=== PATIENT | male | born 1955 | race Caucasian/White ===

== ENCOUNTER 2019-10-13 19:46 | Observation (INO) | payer OTHER, MEDICAID ==
[~2019-10-13] VITALS: Ht 172.7 cm; Wt 77.1 kg
--- NOTE | ~2019-10-13 | EC ---
PATIENT:JERARDO ZAZUETA DATE OF SERVICE: 10/13/19 SEX: M MEDICAL RECORD: [id number] DATE OF : [birth year] LOCATION:D. D.212 AGE OF PATIENT: 64 ADMISSION DATE: 10/13/19 REFERRING PHYSICIAN: INTERPRETING PHYSICIAN: MARLIN HARVEY MD ECHOCARDIOGRAM REPORT ECHO CHARGES 4 ECHO COMPLETE Date: 10/15/19 CLINICAL DIAGNOSIS: UNSTABLE ANGINA HX CAD/PACER ECHOCARDIOGRAPHIC MEASUREMENTS (adult normal given) AC root (d.<3.7cm) 3.7 cm LV Septum d (<1.2 cm> 1.6 cm Valve Excursion 2.1 cm LV Septum (systole) 1.8 cm Left Atria (s.<4.0cm> 4.5 cm LVPW d(<1.2cm) 1.7 cm RV (d.<2.3cm) 5.4 cm LVPW (sytole) 1.9 cm LV diastole(<5.6CM) 5.5 cm MV E-F(>70mm/sec) cm LV systole 3.4 cm LVOT Diameter 2.5 cm MV exc.(>10mm) 1.8 cm Est.ejection fraction (50-75%) % DOPPLER: LVIT cm/sec A 70.0 cm/sec E 88.0 cm/sec LA cm/sec RVSP 37 mmHg LVOT 145 cm/sec AOP1/2T m/s Asc. Ao 140 cm/sec RVOT 80 cm/sec RA cm/sec PA 140 cm/sec AV Gradient Peak 7.80 mmHg AV Mean 5.30 mmHg AV Area 4.8 cm MV Gradient Peak 5.28 mmHg MV Mean 1.54 mmHg MV Area cm COMMENTS: Coffee Break Attendant: Franklin THOMPSON Breakfast Server: 1 Dr. Harvey TAPE# PACS Pericardial Effusion N DATE OF SERVICE: 10/15/2019 ECHOCARDIOGRAM FINDINGS: 1. Left ventricular chamber size is within normal limits. Left ventricular systolic function is normal. Overall ejection fraction estimated at 60%. 2. Left atrium is enlarged at 4.5 cm. Right atrium and right ventricular chamber sizes are as well mildly dilated. 3. Valvular structures have normal structure and motion. ECHOCARDIOGRAM REPORT [id number] JERARDO ZAZUETA 4. Doppler interrogation reveals mild aortic insufficiency, mild mitral regurgitation, mild tricuspid regurgitation, no other valvular insufficiency or stenosis. 5. Pulmonary systolic pressure is estimated at 37 mmHg. 6. No evidence of pericardial effusion or left ventricular thrombus. TRANSINT:[id number] Voice Confirmation ID: [id number] DOCUMENT ID: [id number] MARLIN HARVEY MD CC: [id number] DICTATION DATE: 10/15/191251 SYSTEMS PROTECTION TECHNICIAN: 10/15/191950 ADM IN [facility] [address] [place] [address]
--- NOTE | ~2019-10-13 | HEMODYNAMI ---
PATIENT:JERARDO ZAZUETA MEDICAL RECORD: [id number] : 51 LOCATION:Emy.MS Booth2230 ADMISSION DATE: 10/13/19 Generatedon:10/15/201917:15 Patient name: JERARDO ZAZUETA Patient #: [id number] SSN: [id number] : 1955 Date of study: 10/15/2019 Page: Of Hemodynamic Procedure Report Patient Data Patient Demographics Procedure consent was obtained First Name: JERARDO Gender: Male Last Name: CARLITA : 1955 Patient #: [id number] Age: 64 year(s) Race: SSN: [id number] Additional ID: [id number] Contact details Address: [address] [place] [address] State: [place] City: [facility] [place], [place] Zip code: [address] Past Medical History Allergies: No known allergies Admission Admission Data Admission Date: 10/13/2019 Admission Time: 21:32 Arrival Date: 10/15/2019 Arrival Time: 0:00 Admit Source: Other Insurance Payor: Private Room #: D.2230 health insurance [facility] #: [id number] Height (in.): 68 BSA: 1.91 (m2) Height (cm.): 172.72 BMI: 25.9 (kg/m2) Weight (lbs.): 170.35 Weight (kg.): 77.27 Lab Results Lab Result Date: 10/15/2019 Lab Result Time: 0:00 Biochemistry Name Units Result Min Max BUN mg/dl 17 --(---*)-- 7 18 CK-MB ng/ml 0.7 --(*---)-- 0 3.6 Creatinine mg/dl 1.2 --(---*)-- 0.6 1.3 eGFR ml/min 64.70379 *-(----)-- 90 120 NONAFRICAN Troponin l ng/ml 0.017 --(-*--)-- 0 0.06 CBC Name Units Result Min Max Hematocrit % 37.3 *-(----)-- 42 54 Hemoglobin g/dl 12.1 *-(----)-- 13.5 17.5 Procedure Procedure Types Cath Procedure Diagnostic Procedure [facility] w/Coronaries FFR/IVUS FFR Initial Sedation Charges Moderate Sedation up to 15 minutes PCI Procedure Coronary Stent Coronary Stent Initial Hemochron ACT Test Procedure Description Procedure Date Procedure Date: 10/15/2019 Procedure Start Time: 16:59 Procedure End Time: 17:13 Procedure Staff Name Function Lazaro Harvey MD Performing Physician Lila Suarez RT Monitor Sana Hensley RT Scrub Gee Moreno RN Nurse Procedure Data Cath Procedure Fluoroscopy Diagnostic fluoroscopy Total fluoroscopy Time: 2 time: 2 min min Diagnostic fluoroscopy Total fluoroscopy dose: 434 dose: 434 mGy mGy Contrast Material Contrast Material Type Amount (ml) Isovue 370 71 Entry Location Entry Primary Successful Side Size Upsize Upsize Entry Closure Succes sful Closure Location (Fr) 1 (Fr) 2 (Fr) Remarks Device Remarks Femoral Right 5 Fr 6 Fr Exoseal artery Short Estimated blood loss: 10 ml Diagnostic catheters Device Type Used For End Catheter Placement MULTIPACK Pigtail 5 Fr Procedure catheter MULTIPACK JL 4.0 5Fr Procedure catheter MULTIPACK 3DRC 5Fr Procedure catheter Procedure Complications No complications Procedure Medications Medication Administration Route Dosage 0.9% NaCl I.V. 100 ml/hr Oxygen etCO2 Nasal cannula 2 l/min Heparin Flush Bag added to field 2 bags (1000units/500ml NS) Lidocaine 2% added to field 20 Versed I.V. 1 mg Fentanyl I.V. 50 mcg Versed I.V. 1 mg Fentanyl I.V. 50 mcg Heparin Bolus I.V. 4000 units Integrilin (Bolus I.V. 6.8 ml 2mg/ml) Plavix P.O. 600 mg Hemodynamics Rest BSA: 1.91 (m2) HGB: 12.1 (g/dl) O2 Consumption: Estimated: 235.6 (ml/min) O2 Con sumption indexed: Estimated:123.35 (ml/min/m) Heart Rate: 88 (bpm) Snapshots Pre Cath Intra NCS Post Cath Vital Signs Time Heart Resp SPO2 etCO2 NIBP Rhythm Pain Sedation Rate (ipm) (%) (mmHg) (mmHg) Status Level (bpm) 16:50:55 87 21 96 0 114/77(91) NSR 0 (11) 10(A) , No pain 16:55:01 90 18 98 0 112/74(88) NSR 0 (11) 10(A) , No pain 16:59:06 84 17 99 26.2 102/71(84) NSR 0 (11) 10(A) , No pain 17:03:08 90 13 94 30.7 105/71(85) NSR 0 (11) 10(A) , No pain 17:07:14 100 21 94 3 112/68(88) NSR 0 (11) 10(A) , No pain 17:11:18 96 16 96 18.7 105/80(90) NSR 0 (11) 10(A) , No pain Medications Time Medication Route Dose Verified Delivered Reason Notes Effectiveness by by 16:57:20 0.9% NaCl I.V. 100 Gee Gee Per physician ml/hr Tiffanie Moreno RN RN 16:57:35 Oxygen etCO2 2 Gee Gee for low 02 sats Nasal l/min Tiffanie Moreno cannula RN RN 16:57:49 Heparin Flush added 2 Gee Gee used for Bag to bags Lorjessica Moreno procedure (1000units/500ml field RN RN NS) 16:58:12 Lidocaine 2% added 20ml Gee Gee for local to vial Lorjessica Moreno anesthetic [facility] RN RN 16:58:21 Versed I.V. 1 mg Gee Gee for sedation Tiffanie Moreno RN RN 16:58:29 Fentanyl I.V. 50 Gee Gee for sedation mcg Tiffanie Moreno RN RN 16:59:07 Versed I.V. 1 mg Gee Gee for sedation Tiffanie Moreno RN RN 16:59:11 Fentanyl I.V. 50 Gee Gee for sedation mcg Tiffanie Moreno RN RN 17:06:45 Heparin Bolus I.V. 4000 Gee Gee for verif ied units Tiffanie Moreno anticoagulation with RN HARRY balderas 17:09:02 Integrilin I.V. 6.8 Gee Gee for waste d (Bolus 2mg/ml) ml Tiffanie Moreno antiplatelet 3.2 ml RN RN therapy of vial 17:11:25 Plavix P.O. 600 Gee Gee for mg Lorjessica Moreno antiplatelet RN RN therapy Procedure Log Time Note 16::42 Informed consent obtained and on chart 16:25:04 Procedure Status Urgent Heart Cath (IP). 16:25:06 Gee Moreno RN sent for patient. Start room use. 16:25:07 Time tracking: Regular hours (M-F 7:00 - 5:00) 16:25:10 Plan of Care:Hemodynamics will remain stable., Cardiac rhythm will remain stable., Comfort level will be maintained., Respiratory function will remain adequate., Patient/ family verbilizes understanding of procedure., Procedure tolerated without complication., Recovers from procedure without complications.. 16:37:38 H&P Date Dictated: 10/15/2019 Within 30 days and on chart.. 16:38:32 Lab Result : BUN 17 mg/dl 16:38:32 Lab Result : Creatinine 1.2 mg/dl 16:38:32 Lab Result : Troponin l 0.017 ng/ml 16:38:32 Lab Result : CK-MB 0.7 ng/ml 16:38:32 Lab Result : eGFR NONAFRICAN 64.25875 ml/min 16:38:32 Lab Result : Hemoglobin 12.1 g/dl 16:38:32 Lab Result : Hematocrit 37.3 % 16:38:36 Lab results completed and on chart. 16:38:41 Stress Test: no; N/A ? 16:38:45 Risk of Mortality: 0.8 16:38:47 Risk of blood transfusion: 1.2 16:38:51 Risk of VANCE: 0.7 16:38:53 Alarms reviewed by R. N. 16:38:54 Sharps counted by scrub and verified by R.N. 16:39:26 Arrival Date: 10/15/2019 12:00:00 AM 16:39:27 Admit Source: Other 16:39:30 Insurance Payor : Private health insurance 16:39:43 Patient Height : 68 inches 16:39:47 Patient Weight : 170.35 lbs 16:39:59 Diagnostic Cath Status : Urgent 16:43:30 Patient received from Med II to CCL 1 Alert and oriented. Tansferred to table in Supine position. 16:43:31 Warm blankets applied, and imelda hugger turned on for patient comfort. 16:43:32 Correct patient and procedure confirmed by team. 16:43:34 ECG and BP/O2 sat monitors applied to patient. 16:45:06 Pre-procedure instructions explained to patient. 16:45:07 Pre-op teaching completed and patient verbalized understanding. 16:45:10 Family unavailable. 16:45:15 Patient allergic to No known allergies 16:45:18 Is the patient allergic to Iodine/contrast media? No. 16:45:19 Was the patient premedicated? Yes 16:49:06 Is patient on blood thinner?No 16:49:10 ACC The patient was administered the following blood thiners within the last 24 hours: Unknown 16:49:13 Patient diabetic? Yes. 16:49:14 If diabetic: On Metformin? Yes 16:49:32 If on Metformin: Last Dose? 10/13/2019 16:49:35 ----Pre-sedation anethsthesia assessment.---- 16:49:43 Previous problem with sedation/anesthesia? No ? 16:49:44 Snore? Yes 16:49:46 Sleep apnea? No 16:49:47 Deviated septum? No 16:49:48 Opens mouth fully? Yes 16:49:50 Sticks out tongue? Yes 16:49:52 Airway obstruction? No ? 16:49:55 Dentures? No ? 16:49:59 Vital chart was started 16:50:00 Full Disclosure recording started 16:50:07 Pre procedure: right dorsailis pedis pulse 2+ Normal; easily identifiable; not easily obliterated 16:50:11 Patient pain scale 0/10 ?. 16:50:23 IV patent on arrival in right wrist with 0.9% NaCl at O. 16:50:27 Right groin area was prepped with chlora-prep and draped in sterile fashion 16:50:35 Baseline sample Acquired. 16:50:39 Rhythm: sinus rhythm 16:50:43 Use device set Femoral Dx 16:50:44 ACIST Syringe (63901) opened to sterile field. 16:50:45 Bag Decanter (2001S) opened to sterile field. 16:50:50 Tegaderm 4 x 4 (1626W) opened to sterile field. 16:50:52 SHEATH 5FR [place] (YYP554) opened to sterile field. 16:50:53 EMERALD Guide Wire (456-514) opened to sterile field. 16:50:55 ACIST Hand Control (55544) opened to sterile field. 16:50:56 ACIST Manifold (56180) opened to sterile field. 16:50:58 Medline Cath Pack ([id number]) opened to sterile field. 16:51:02 DIAGNOSTIC Multipack 5Fr catheter set (GT5651) opened to sterile field. 16:57:20 0.9% NaCl 100 ml/hr I.V. was administered by Gee Moreno RN; Per physician; Verbal order read back and verified. 16:57:35 Oxygen 2 l/min etCO2 Nasal cannula was administered by Gee Moreno RN; for low 02 sats; Verbal order read back and verified. 16:57:46 --------ALL STOP TIME OUT------ 16:57:47 Final Timeout: patient, procedure, and site verified with staff and physician. All members of the team are in agreement. 16:57:49 Heparin Flush Bag (1000units/500ml NS) 2 bags added to field was administered by Gee Moreno RN; used for procedure; Verbal order read back and verified. 16:57:49 Right groin site verified by team. 16:57:53 Fire Safety Assessment: A--An alcohol-based skin anteseptic being used preoperatively., C--Open oxygen or nitrous oxide is being used., D--An ESU, laser, or fiber-optic light is being used. 16:58:00 Physical assessment completed. ASA score P 2 - A patient with mild systemic disease as per Lazaro Harvey MD. 16:58:03 2) 60-89 Mildly reduced kidney function, and other findings (as for stage 1) point to kidney disease. 16:58:07 Maximum allowable contrast dose (3.7 X eGFR X 0.75)177 ml. 16:58:11 Sedation plan: IV Moderate Sedation Medication:Versed, Fentanyl 16:58:12 Lidocaine 2% 20ml vial added to field was administered by Gee Moreno RN; for local anesthetic; Verbal order read back and verified. 16:58:15 Procedure started. 16:58:21 Versed 1 mg I.V. was administered by Gee Moreno RN; for sedation; Verbal order read back and verified. 16:58:29 Fentanyl 50 mcg I.V. was administered by Gee Moreno RN; for sedation; Verbal order read back and verified. 16:59:07 Versed 1 mg I.V. was administered by Gee Moreno RN; for sedation; Verbal order read back and verified. 16:59:11 Fentanyl 50 mcg I.V. was administered by Gee Moreno RN; for sedation; Verbal order read back and verified. 16:59:14 Local anesthetic to right femoral artery with Lidocaine 2% by Lazaro Harvey MD.INITIAL ACCESS ONLY 16:59:25 A 5 Fr sheath was inserted into the Right Femoral artery 16:59:38 A MULTIPACK Pigtail 5 Fr catheter was advanced over the wire and used for Procedure. 17:00:20 LV gram done using FELDMAN 17:00:34 Injector settings: Ml/sec: 10, Volume: 20, 17:00:48 EF : 50 % 17:00:55 Catheter removed. 17:01:00 A MULTIPACK JL 4.0 5Fr catheter was advanced over the wire and used for Procedure. 17:01:05 LCA angiography performed. 17:02:19 Catheter removed. 17:02:26 A MULTIPACK 3DRC 5Fr catheter was advanced over the wire and used for Procedure. 17:02:36 RCA angiography performed. 17:02:48 ACCDominant side:Left 17:02:51 Catheter removed. 17:02:53 Proceeding to intervention. 17:03:05 Sheath upsized to a 6 Fr Short. 17:03:13 SHEATH 6FR [place] (KEU750) opened to sterile field. 17:03:17 INFLATOR Merit BasixCompak (FR9157) opened to sterile field. 17:03:18 Westbrook Verrata Plus pressure wire (46313J) opened to sterile field. 17:03:19 GUIDE 6FR XBLAD 4.0 catheter ([id number]) opened to sterile field. 17:03:32 6 Fr XBLAD 4 guide catheter was inserted over the wire 17:04:15 FFR/IFR wire advanced. 17:05:17 Wire advanced across lesion. 17:06:04 mLAD lesion measured at .81 with IFR 17:06:45 Heparin Bolus 4000 units I.V. was administered by Gee Moreno RN; for anticoagulation; verified with dr harvey Verbal order read back and verified. 17:06:49 Pre PCI Site: [place] mLAD has 70% stenosis. 17:07:33 Place stent Inflation Number: 1 A COBRA RX 3.5 X 12 Stent was prepped and advanced across the Mid LAD . The stent was deployed at 17 AJIT for 0:00 (min:sec) . 17:08:22 EXOSEAL 6Fr (EX600) opened to sterile field. 17:08:34 Wire removed. 17:08:35 Guide catheter removed. 17:08:52 Sheath removed intact; hemostasis achieved with Exoseal to the Right Femoral artery. 17:08:55 Procedure ended.(Physican Out) 17:09:02 Integrilin (Bolus 2mg/ml) 6.8 ml I.V. was administered by Gee Moreno RN; for antiplatelet therapy; wasted 3.2 ml of vial Verbal order read back and verified. 17:09:24 Fluoroscopy time 02.00 minutes. 17:09:29 Fluoroscopy dose: 434 mGy 17:09:29 Flurop Dose total: 434 17:09:36 Dose Area Product 01228 mGy/cm. 17:09:44 Contrast amount:Isovue 370 71ml. 17:09:49 Maximum allowable dose exceeded? No. 17:09:51 Sharps counted by scrub and verified by R.N. 17:10:02 Post-op/insertion site Right Femoral artery dressed using a 4 x 4 and Tegaderm. 17:10:08 Post right femoral artery:stable, soft, clean and dry 17:10:14 Post Procedure Pulses reassessed and unchanged 17:10:17 Post procedure: right dorsailis pedis pulse 2+ Normal; easily identifiable; not easily obliterated. 17:10:23 Post-procedure physical assessment completed. ASA score P 2 - A patient with mild systemic disease as per Lazaro Harvey MD. 17:10:26 Post procedure rhythm: unchanged. 17:10:29 Estimated blood loss: 10 ml 17:10:31 Post procedure instruction explained to patient.Patient verbalizes understanding. 17:10:32 Patient needs reinforcement of post procedure teaching. 17:11:24 Procedure type changed to Cath procedure, Diagnostic procedure, LHC, LHC w/Coronaries, FFR/IVUS, FFR Initial, Sedation Charges, Moderate Sedation up to 15 minutes, PCI procedure, Coronary Stent, Coronary Stent Initial, Hemochron ACT Test 17:11:25 Plavix 600 mg P.O. was administered by Gee Moreno RN; for antiplatelet therapy; Verbal order read back and verified. 17:12:37 ACT drawn and resulted at 166 seconds. (normal therapeutic range 180-240 seconds). 17:12:51 Procedure Complication : No complications 17:12:53 Vital chart was stopped 17:12:57 [facility] Findings: MVD- PCI performed (see procedure note) 17:12:59 Operative report dictated upon procedure completion. 17:12:59 See physician's report for complete and final results. 17:13:02 Report given to [facility]. 17:13:05 Patient transfered to [facility] with Bed. 17:13:08 Procedure ended. 17:13:08 Full Disclosure recording stopped 17:13:17 ACC-PCI Only Patient was given prescriptions, or instructed by Lazaro Harvey MD to start/continue the following medications upon discharge: Plavix 17:13:20 End room use (Document Last) 17:14:02 End room use (Document Last) Intervention Summary Intervention Notes Time ActionType Lesion and Equipment Action# Pressure Duration Attributes Used 17:07:33 Place stent Mid LAD COBRA RX 1 17 00:00 3.5 X 12 Stent Device Usage Item Name Manufacture Quantity Catalog Hospital Part Current Minimal Lot# / Number Charge Number Stock Stock Serial# Code ACIST Syringe Acist 1 03603 934966 130923 329664 20 (10414) Medical Systems Inc Bag Decanter Microtek 1 2001S 796249 16196 512659 5 (2001S) Medical Inc. Tegaderm 4 x 4 3M 1 1626W 997374 470920 060823 5 (1626W) SHEATH 5FR Terumo 1 VSY197 321685 652588 004556 5 [place] (ZFT904) EMERALD Guide Cardinal 1 502-455 586044 908461 885188 5 Wire (502-455) Health ACIST Hand Acist 1 58084 718056 749921 198634 5 Control Medical (25526) Systems Inc ACIST Manifold Acist 1 11666 105852 031668 249019 5 (09610) Medical Systems Inc Medline Cath Medline 1 [id number] 148418 40866 927039 5 Pack ([id number]) DIAGNOSTIC Cardinal 1 NX4205 603775 27849 656519 30 Multipack 5Fr Health catheter set (LX4542) MULTIPACK Cardinal 1 271537 5 Pigtail 5 Fr Health catheter MULTIPACK JL Cardinal 1 559771 5 4.0 5Fr Health catheter MULTIPACK 3DRC Cardinal 1 181992 5 5Fr catheter Health SHEATH 6FR Terumo 1 PMX751 303920 209448 053942 40 [place] (ZMG824) INFLATOR Merit Merit 1 XF5666 776471 208665 979002 [address] [facility] (WB8850) Westbrook Westbrook 1 97143W 544877 281109929 729458 5 Verrata Plus pressure wire (98677G) GUIDE 6FR Cardinal 1 [id number] 368404 258287 333473 3 XBLAD 4.0 Health catheter ([id number]) COBRA RX 3.5 X Celonova 1 [id number] 565288 168671065 892328 3 [id number] 12 stent Biosciences (129-40-76572) EXOSEAL 6Fr Cardinal 1 EX600 574521 741292 858618 10 (EX600) Health Signature Audit Norris Stage Time Signature Unsigned Intra-Procedure 10/15/2019 Sana Hensley 5:14:02 PM RT(R) Intra-Procedure 10/15/2019 Gee 5:15:14 PM Tiffanie MCDONALD Intra-Procedure 10/15/2019 Lazaro Harvey 5:15:50 PM [facility] [address] [place] [address]
--- NOTE | ~2019-10-13 | CN ---
PATIENT NAME:JERARDO THOMPSON MEDICAL RECORD: [id number] : 51 LOCATION:D.MS Booth2230 ADMIT DATE: 10/13/19 ACCOUNT: [id number] CONSULTING PHYSICIAN: MARLIN ASHBY MD REFERRING PHYSICIAN: NIECY MOREL MD DATE OF CONSULTATION: 10/15/2019 CARDIOLOGY CONSULTATION DIAGNOSES: 1. Unstable angina. 2. Coronary artery disease. 3. Previous multivessel PTCA and stent. 4. Smoking. 5. Chronic obstructive pulmonary disease. HISTORY OF PRESENT ILLNESS: Mr. Thompson has had 1 week of increasing episodes of chest pain and chest discomfort compatible with angina, very typical angina, just like that of his previous angina. Burning, dull, aching sensation across the anterior chest radiating to his neck. Associated also with profound in increased shortness of breath over the past week. Does have a history of COPD, smoking. He is being treated for this. He continues to have episodes of chest discomfort despite this. PHYSICAL EXAMINATION: CONSTITUTIONAL/GENERAL APPEARANCE: Well nourished, well developed, appears stated age. EYES: Lids and conjunctivae noninjected. No discharge. No pallor. ENT: Lips within normal limit. No cyanosis. No pallor. NECK: Carotid arteries, bilateral normal upstroke. No bruits. No thrills. No jugular venous pressure or distention. CERVICAL LYMPH NODES: Nontender. Nonenlarged. THYROID: Not enlarged. No nodules. CARDIOVASCULAR: Precordial exam, nondisplaced. No heaves or pericardial thrills. Rate and rhythm, regular. Heart sounds, normal S1, normal S2. No S3, no gallop, no rub. Systolic murmur, not heard. Diastolic murmur, not heard. RESPIRATORY: Respiratory effort, unlabored. Normal curvature. No thoracic deformity. No chest wall tenderness. Percussion, resonant. Auscultation, clear. No wheezes, no rales, no rhonchi. ABDOMEN: Soft, nondistended, nontender. No abdominal pain, no vomiting and normal appetite. MUSCULOSKELETAL: No joint tenderness, normal gait, normal tone. SKIN: Warm and dry. OVERALL IMPRESSION: Unstable angina class IV, just like that of his previous angina in a patient with a past history of multivessel PTCA and stent, chronic obstructive pulmonary disease, and continued smoking. Most likely, he has recurrent hemodynamically significant coronary artery disease. We will proceed with coronary angiography. Further care depends on findings of the angiography. TRANSINT:[id number] Voice Confirmation ID: [id number] DOCUMENT ID: [id number] CONSULT REPORT [id number] JERARDO THOMPSON JEFFREY MD CC: [id number] DICTATION DATE: 10/15/19824 MILL WORK: 10/15/19 112 ADM IN [place] [address] [place] [address]
--- NOTE | ~2019-10-13 | OP ---
PATIENT NAME: JERARDO ZAZUETA MEDICAL RECORD: [id number] :51 LOCATION:D.M2 D.2121 ADMISSION DATE:10/13/19 SURGEON: MARLIN ASHBY MD DATE OF OPERATION: 10/15/2019 PROCEDURES: 1. PTCA stent LAD. 2. IFR. 3. Left heart catheterization. 4. Selective coronary angiography. 5. Left ventriculogram. 6. Left heart catheterization. INDICATION: Angina and coronary artery disease. PROCEDURE IN DETAIL: After informed consent was obtained and after a detailed description of risks, benefits as well as alternative therapies, the patient elected to proceed with angiogram and angioplasty. The right femoral area was prepped and draped in normal sterile fashion. Right femoral artery was cannulated via modified Seldinger technique with placement of 6-Luxembourgish sheath. All catheters exchanged through this sheath. FINDINGS: The left ventriculogram was performed in standard 30-degree FELDMAN view, reveals good cardiac wall motion, ejection fraction 50%. SELECTIVE CORONARY ANGIOGRAPHY: 1. Left main is with no significant angiographic disease. 2. Left anterior descending has a previously placed stent in the mid vessel. This was 70% in-stent restenosis and IFR was abnormal at 0.81. 3. Left circumflex has moderate irregularities, but no flow-limiting stenosis. 4. Right coronary has moderate irregularities, but no flow-limiting stenosis. PTCA STENT OF THE LAD: The stent used was a 3.5 x 15 mm Cobra. Result was 0% residual stenosis. OVERALL IMPRESSION: Successful percutaneous transluminal angioplasty stent of the left anterior descending going from 70% initial stenosis with abnormal IFR to 0% residual. TRANSINT:[id number] Voice Confirmation ID: [id number] DOCUMENT ID: [id number] MARLIN ASHBY MD CC: [id number] DICTATION DATE: 10/15/19 171 SOFT MUD MOLDER: 10/16/19 0505 ADM IN [place] [id number] [place] [address]
[2019-10-13] MEDS ORDERED: NEURONTIN 300300 MG PO (19:53)
[2019-10-13] MEDS ORDERED: BLOOD THINNER (19:53)
[2019-10-13 20:00] VITALS: BP 107/64
--- NOTE | 2019-10-13 20:30 | NUR ---
PT RESTING ON BED. NO S/S OF ACUTE DISTRESS NOTED AT THIS TIME.
[2019-10-13 20:33] LABS: BASOPHILS 0.2 % (0-2); EOSINOPHILS 3.8 % (0-7); HEMATOCRIT 39.1 % (42.0-54.0); HEMOGLOBIN 12.7 g/dL (13.5-17.5); IMMATURE GRANULOCYTES 0.2 % (0-5); LYMPHOCYTES 37.7 % (15-50); MCH 29.7 pg (26.0-34.0); MCHC 32.5 g/dL (31.0-37.0); MCV 91.4 fL (80.0-100.0); MONOCYTES 9.4 % (2-11); NEUTROPHILS 48.7 % (40-80); PLATELET COUNT 179 10x3/uL (130-400); RBC 4.28 10x6/uL (4.20-6.10); RDW 14.5 % (11.5-14.5); WBC 5.9 10x3/uL (4.8-10.8)
[2019-10-13 20:40] LABS: APTT 28.4 SECONDS (22.8-39.4); CALC OSMOLALITY 287 mosm/kg (275-300); CALCIUM 8.6 mg/dL (8.5-10.1); CHLORIDE - SERUM 110 mmol/L (98-107); CREATININE - SERUM 1.4 mg/dL (0.6-1.3); GLUCOSE 102 mg/dL (74-106); INR 1.27 (0.85-1.17); POTASSIUM - SERUM 3.7 mmol/L (3.5-5.1); PROTIME 15.4 SECONDS (11.6-15.0); SODIUM 144 mmol/L (136-145); UREA NITROGEN 14 mg/dL (7-18); eGFR NON AFRICAN AMERICAN 55 mL/min (90-120)
[2019-10-13 20:57] LABS: ALBUMIN 3.4 g/dL (3.4-5.0); ALKALINE PHOSPHATASE 105 U/L (46-116); ALT (SGPT) 19 U/L (10-68); BILIRUBIN - TOTAL 0.37 mg/dL (0.2-1.3); CREATINE KINASE 119 UL (21-232); PROTEIN - SERUM 6.4 g/dL (6.4-8.2)
[2019-10-13 21:00] VITALS: BP 97/60
[2019-10-13 21:04] LABS: TROPONIN-I < 0.017 ng/mL (0.000-0.060)
--- NOTE | 2019-10-13 21:51 | NUR ---
PT C/O JAW, CHEST,AND NECK PAIN 9/10 ON A SCALE OF 0/10
--- NOTE | 2019-10-13 22:25 | NUR ---
PT REPORTS DECREASE IN PAIN. PT SITTING UP IN BED, TALKING ON PHONE AT THIS TIME.
[2019-10-13 22:31] VITALS: BP 97/59
[2019-10-13 22:50] LABS: CKMB 0.9 U/L (0.0-3.6); CREATINE KINASE 115 UL (21-232)
[2019-10-13 22:56] LABS: TROPONIN-I < 0.017 ng/mL (0.000-0.060)
--- NOTE | 2019-10-13 22:56 | NUR ---
PATIENT ADMITTED TO [facility] FLOOR.
[2019-10-13 23:37] VITALS: BP 107/68; BMI 25.9
[2019-10-14 04:32] LABS: CKMB 1.2 U/L (0.0-3.6); CREATINE KINASE 110 UL (21-232)
[2019-10-14 04:39] VITALS: BP 95/52
[2019-10-14 04:39] LABS: TROPONIN-I < 0.017 ng/mL (0.000-0.060)
[2019-10-14 08:49] VITALS: BP 93/52
[2019-10-14 10:07] LABS: CKMB 0.8 U/L (0.0-3.6); CREATINE KINASE 98 UL (21-232)
[2019-10-14 10:08] LABS: TROPONIN-I < 0.017 ng/mL (0.000-0.060)
[2019-10-14 13:43] VITALS: BP 103/61
[2019-10-14 14:25] LABS: % SATURATION 16 % (15-55); IRON 57 ug/dl (35-150); TOTAL IRON BIND CAPACITY 336 ug/dl (260-445); UNSAT IRON BIND CAPACITY 279 ug/dl (150-375)
[2019-10-14 16:16] VITALS: BP 105/61
[2019-10-14 16:18] LABS: CKMB 3.3 U/L (0.0-3.6); CREATINE KINASE 171 UL (21-232); TROPONIN-I < 0.017 ng/mL (0.000-0.060)
--- NOTE | 2019-10-14 19:15 | NUR ---
PATIENT ALERT AND ORIENTED. DENIES PAIN AND DISCOMFORT AT THIS TIME. URINAL AT BEDSIDE. TELEMETRY IN PLACE. DENIES FURTHER NEEDS AT THIS TIME. CALL LIGHT WITHIN REACH. CPOC.
[2019-10-14 20:00] VITALS: BP 88/53
[2019-10-14 23:00] LABS: CREATINE KINASE 170 UL (21-232)
[2019-10-14 23:04] LABS: TROPONIN-I < 0.017 ng/mL (0.000-0.060)
[2019-10-15] VITALS: BP 90/59
--- NOTE | 2019-10-15 02:27 | NUR ---
RESTING COMFORTABLY. NO DISTRESS NOTED. CPOC.
--- NOTE | 2019-10-15 03:54 | NUR ---
I have reviewed this patient and I concur with the Shift Assessment completed by the Licensed Practical Nurse today this shift.
[2019-10-15 04:00] VITALS: BP 93/59
[2019-10-15 05:26] LABS: BASOPHILS 0.1 % (0-2); EOSINOPHILS 2.5 % (0-7); HEMATOCRIT 37.3 % (42.0-54.0); HEMOGLOBIN 12.1 g/dL (13.5-17.5); IMMATURE GRANULOCYTES 0.1 % (0-5); LYMPHOCYTES 30.7 % (15-50); MCH 29.4 pg (26.0-34.0); MCHC 32.4 g/dL (31.0-37.0); MCV 90.8 fL (80.0-100.0); MONOCYTES 7.3 % (2-11); NEUTROPHILS 59.3 % (40-80); PLATELET COUNT 177 10x3/uL (130-400); RBC 4.11 10x6/uL (4.20-6.10); RDW 14.8 % (11.5-14.5)
[2019-10-15 05:51] LABS: ANION GAP 13.2 mmol/L (8-16); CALCIUM 8.6 mg/dL (8.5-10.1); CARBON DIOXIDE 23.2 mmol/L (21.0-32.0); CREATININE - SERUM 1.2 mg/dL (0.6-1.3); POTASSIUM - SERUM 3.4 mmol/L (3.5-5.1); WBC 7.5 10x3/uL (4.8-10.8)
[2019-10-15 06:17] LABS: CKMB 0.7 U/L (0.0-3.6); CREATINE KINASE 158 UL (21-232)
[2019-10-15 06:18] LABS: TROPONIN-I < 0.017 ng/mL (0.000-0.060)
[2019-10-15 08:01] VITALS: BP 101/59
--- NOTE | 2019-10-15 09:16 | NUR ---
SPOKE WITH MED 2 NURSE WHO STATES OK TO GIVE ECOTRIN THIS AM EVEN THOUGH HAVING HEART CATH. PATIENT STATES ATE SOME OF BREAKFAST. EDUCATION PROVIDED TO MAINTAIN NPO STATUS UNTIL AFTER PROCEDURE. VERBALIZED UNDERSTANDING. CONSENTS FOR PROCEDURE SIGNED.
--- NOTE | 2019-10-15 09:17 | NUR ---
PATIENT GROIN AND RIGHT RADIAL CLIPPED FOR PROCEDURE PER ORDER.
--- NOTE | 2019-10-15 09:20 | NUR ---
STOOL SAMPLE COLLECTED AND TAKEN TO LAB.
--- NOTE | 2019-10-15 09:50 | NUR ---
ALERT AND ORIENTED. LUNGS CLEAR BILATERALLY. HEART SOUNDS S1 AND S2 HEARD IN ALL DUMONT. BOWEL SOUNDS ACTIVE X 4. SKIN INTACT WITHOUT REDNESS. O2 IN PLACE AT 2L NC. IV TO RFA SL PATENT WITHOUT REDNESS. TELEMETRY IN PLACE SHOWING 67 NORMAL SINUS ON MONITOR. DENIES NEEDS. BED LOW. FALL PRECAUTIONS IN PLACE. CALL [place] AND PERSONAL ITEMS IN REACH. WILL CONTINUE TO MONITOR.
[2019-10-15 12:43] VITALS: BP 101/66
[2019-10-15 13:41] VITALS: Ht 172.7 cm; Wt 77.1 kg
--- NOTE | 2019-10-15 15:21 | NUR ---
RESTING IN BED. WAITING PROCEDURE. DENIES NEEDS. WILL CONTINUE TO MONITOR.
[2019-10-15 15:51] VITALS: BP 134/60
--- NOTE | 2019-10-15 16:12 | NUR ---
PREOP MEDICATIONS GIVEN PER ORDER.
--- NOTE | 2019-10-15 17:30 | NUR ---
REPORT CALLED TO KATHIE ON MED 2. DENIES FURTHER QUESTIONS. WILL TRANSFER PATIENT.
[2019-10-15 20:37] VITALS: BP 108/67
[2019-10-16 00:30] VITALS: BP 100/65
[2019-10-16 04:32] VITALS: BP 90/57
[2019-10-16 06:17] LABS: CALC OSMOLALITY 288 mosm/kg (275-300); CALCIUM 8.5 mg/dL (8.5-10.1); CARBON DIOXIDE 22.8 mmol/L (21.0-32.0); CHLORIDE - SERUM 111 mmol/L (98-107); GLUCOSE 81 mg/dL (74-106); HEMATOCRIT 37.9 % (42.0-54.0); HEMOGLOBIN 12.4 g/dL (13.5-17.5); MAGNESIUM - SERUM 1.8 mg/dL (1.8-2.4); MCH 29.8 pg (26.0-34.0); MCHC 32.7 g/dL (31.0-37.0); MCV 91.1 fL (80.0-100.0); MEAN PLATELET VOLUME 12.3 fL (7.4-10.4); PLATELET COUNT 147 10x3/uL (130-400); RBC 4.16 10x6/uL (4.20-6.10); RDW 15.1 % (11.5-14.5); SODIUM 145 mmol/L (136-145); UREA NITROGEN 16 mg/dL (7-18); WBC 6.4 10x3/uL (4.8-10.8); eGFR NON AFRICAN AMERICAN 79 mL/min (90-120)
[2019-10-16 06:19] LABS: POTASSIUM - SERUM 4.6 mmol/L (3.5-5.1)
--- NOTE | 2019-10-16 07:20 | NUR ---
RECIEVED REPORT. ALERT AND ORIENTED X4. RESTING IN BED. SINUS RYTHM 74 ON TELEMETRY. DENIES ANY NEEDS AT THIS TIME. CONTINUE PLAN OF CARE AND SAFETY PRECAUTIONS.
[2019-10-16 08:16] VITALS: BP 90/46
[2019-10-16] MEDS ORDERED: PROTONIX40 MG PO (09:30)
[2019-10-16] MEDS ORDERED: PLAVIX75 MG PO (09:30)
[2019-10-16] MEDS ORDERED: ASPIRIN81 MG PO (09:30)
[2019-10-16 10:30] LABS: ANISOCYTOSIS OCC; EOSINOPHILS 1 % (0-7); LYMPHOCYTES 38 % (15-50); MONOCYTES 11 % (2-11); NEUTROPHILS 50 % (40-80); PLATELET ESTIMATE NORMAL
--- NOTE | 2019-10-16 13:42 | NUR ---
ALERT AND ORIENTED X4. SITTING UP IN BED. DC RT FA IV TIP INTACT. DISCHARGE INSTRUCTIONS GIVEN VERBALLY AND WRITTEN. DISCHARGE PAPERS SIGNED ON CHART. ESCORT TO RIDE VIA WHEELCHAIR.
--- NOTE | 2019-10-16 17:00 | MORECARE ---
CASE MANAGEMENT DISCHARGE SUMMARY PATIENT: JERARDO ZAZUETA UNIT: [id number] ADM DATE: 10/13/19 AGE: 64 : 53 SEX: M ROOM/BED: D.2121 AUTHOR: JAMES VILLAVICENCIO PHYSICIAN: REFERRING PHYSICIAN: NIECY MOREL MD DATE OF SERVICE: 10/16/19 Discharge Plan Patient Name: JERARDO ZAZUETA [facility] [facility] 1955 Planned Disposition: Home Anticipated Discharge Date: 10/16/19 Discharge Date: 10/16/2019 Expected LOS: 3 Initial Reviewer: [email or web address] Initial Review Date: 10/16/2019 Generated: 10/16/19 6:00 pm Coverage Notice Reviewer: [email or web address] Ramonita Song Notice Issued Date-Time: 10/14/2019 15:15 Notice Type: Medicare Outpatient Observation Notice Notice Delivered To: Patient 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
--- NOTE | 2019-10-18 07:08 | MORECARE ---
CASE MANAGEMENT DISCHARGE SUMMARY PATIENT: JERARDO ZAZUETA UNIT: [id number] ADM DATE: 10/13/19 AGE: 64 : 53 SEX: M ROOM/BED: D.2121 AUTHOR: JAMES VILLAVICENCIO PHYSICIAN: REFERRING PHYSICIAN: NIECY MOREL MD DATE OF SERVICE: 10/18/19 Discharge Plan Patient Name: JERARDO ZAZUETA [facility] [facility] 1955 Planned Disposition: Home Anticipated Discharge Date: 10/16/19 Discharge Date: 10/16/2019 Expected LOS: 3 Initial Reviewer: [email or web address] Initial Review Date: 10/16/2019 Generated: 10/18/19 8:07 am Coverage Notice Reviewer: [email or web address] Ramonita Song Notice Issued Date-Time: 10/14/2019 15:15 Notice Type: Medicare Outpatient Observation Notice Notice Delivered To: Patient 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
== END 2019-10-16 13:44 | disposition home or self-care (01) ==
LOC: D.ER 19:46 → D.MS 21:32 → OBSVTIME 21:32 → D.MS 21:32 → EDBD 21:32 → D.M2 10-15 17:34
PROVIDERS: Emergency Medicine; ADMIT Internal Medicine Nephrology; ATTEND Internal Medicine Nephrology
DX: I25.110 Atherosclerotic heart disease of native coronary artery with unstable angina pectoris (principal); E11.42 Type 2 diabetes mellitus with diabetic polyneuropathy; J96.21 Acute and chronic respiratory failure with hypoxia; N17.9 Acute kidney failure, unspecified; J44.9 Chronic obstructive pulmonary disease, unspecified; D64.9 Anemia, unspecified; F32.9 Major depressive disorder, single episode, unspecified; Z85.048 Personal history of other malignant neoplasm of rectum, rectosigmoid junction, and anus

== ENCOUNTER 2019-11-05 14:28 | Observation (INO) | payer OTHER, MEDICAID ==
[~2019-11-05] VITALS: Ht 172.7 cm; Wt 77.3 kg
[~2019-11-05 14:28] MED LIST: ASPIRIN81 MG PO; BLOOD THINNER; NEURONTIN 300300 MG PO; PLAVIX75 MG PO; PROTONIX40 MG PO
[2019-11-05 15:18] LABS: BASOPHILS 0 % (0-2); EOSINOPHILS 1.9 % (0-7); HEMATOCRIT 39.5 % (42.0-54.0); IMMATURE GRANULOCYTES 0.2 % (0-5); LYMPHOCYTES 32.1 % (15-50); MCH 29.4 pg (26.0-34.0); MCHC 32.9 g/dL (31.0-37.0); MCV 89.4 fL (80.0-100.0); MEAN PLATELET VOLUME 10.1 fL (7.4-10.4); MONOCYTES 8.8 % (2-11); RBC 4.42 10x6/uL (4.20-6.10); RDW 14.4 % (11.5-14.5); WBC 5.2 10x3/uL (4.8-10.8)
[2019-11-05 15:21] LABS: PLATELET COUNT 197 10x3/uL (130-400)
[2019-11-05 15:32] LABS: APTT 22.3 SECONDS (22.8-39.4); INR 1.26 (0.85-1.17); PROTIME 15.7 SECONDS (11.6-15.0)
[2019-11-05 15:46] LABS: CALC OSMOLALITY 286 mosm/kg (275-300); CALCIUM 8.5 mg/dL (8.5-10.1); CARBON DIOXIDE 21.7 mmol/L (21.0-32.0); CHLORIDE - SERUM 111 mmol/L (98-107); GLUCOSE 85 mg/dL (74-106); POTASSIUM - SERUM 4.1 mmol/L (3.5-5.1); SODIUM 144 mmol/L (136-145); UREA NITROGEN 15 mg/dL (7-18); eGFR NON AFRICAN AMERICAN 79 mL/min (90-120)
[2019-11-05 16:03] LABS: ALBUMIN 3.2 g/dL (3.4-5.0); ALKALINE PHOSPHATASE 106 U/L (46-116); ALT (SGPT) 20 U/L (10-68); BILIRUBIN - TOTAL 0.41 mg/dL (0.2-1.3); CREATINE KINASE 120 UL (21-232); MAGNESIUM - SERUM 1.8 mg/dL (1.8-2.4); PROTEIN - SERUM 6.4 g/dL (6.4-8.2)
[2019-11-05 16:09] LABS: TROPONIN-I < 0.017 ng/mL (0.000-0.060)
--- NOTE | 2019-11-05 18:21 | NUR ---
PT HAD ASA PRIOR TO ARRIVAL AT ED
[2019-11-05 18:28] VITALS: BP 110/70
[2019-11-05] MEDS ORDERED: LIPITOR40 MG PO (19:51)
[2019-11-05 20:30] VITALS: BP 103/72
[2019-11-05 21:35] LABS: CKMB 1.1 U/L (0.0-3.6); CREATINE KINASE 94 UL (21-232)
[2019-11-05 21:38] LABS: TROPONIN-I < 0.017 ng/mL (0.000-0.060)
[2019-11-05 23:29] VITALS: BMI 25.9
[2019-11-06 00:30] VITALS: BP 121/78
--- NOTE | 2019-11-06 02:19 | NUR ---
I have reviewed this patient and I concur with the Shift Assessment completed by the Licensed Practical Nurse today this shift.
[2019-11-06 04:30] VITALS: BP 121/75
[2019-11-06 05:07] LABS: BASOPHILS 0.2 % (0-2); EOSINOPHILS 3.1 % (0-7); HEMOGLOBIN 13.1 g/dL (13.5-17.5); IMMATURE GRANULOCYTES 0.3 % (0-5); LYMPHOCYTES 35.2 % (15-50); MCH 29.4 pg (26.0-34.0); MCHC 32.8 g/dL (31.0-37.0); MCV 89.7 fL (80.0-100.0); MEAN PLATELET VOLUME 10.6 fL (7.4-10.4); NEUTROPHILS 53.2 % (40-80); PLATELET COUNT 220 10x3/uL (130-400); RBC 4.46 10x6/uL (4.20-6.10); RDW 14.4 % (11.5-14.5); WBC 6.5 10x3/uL (4.8-10.8)
[2019-11-06 05:46] LABS: ALBUMIN 3.1 g/dL (3.4-5.0); ALKALINE PHOSPHATASE 109 U/L (46-116); ALT (SGPT) 19 U/L (10-68); CALC OSMOLALITY 287 mosm/kg (275-300); CALCIUM 8.2 mg/dL (8.5-10.1); CARBON DIOXIDE 25.6 mmol/L (21.0-32.0); CHLORIDE - SERUM 109 mmol/L (98-107); CKMB 1.1 U/L (0.0-3.6); CREATINE KINASE 94 UL (21-232); CREATININE - SERUM 1.1 mg/dL (0.6-1.3); GLUCOSE 103 mg/dL (74-106); MAGNESIUM - SERUM 1.7 mg/dL (1.8-2.4); PHOSPHOROUS 3.4 mg/dL (2.5-4.9); POTASSIUM - SERUM 3.5 mmol/L (3.5-5.1); PRO BNP 70 pg/mL (0-125); PROTEIN - SERUM 6.4 g/dL (6.4-8.2); SODIUM 144 mmol/L (136-145); TROPONIN-I < 0.017 ng/mL (0.000-0.060); UREA NITROGEN 14 mg/dL (7-18); eGFR NON AFRICAN AMERICAN 71 mL/min (90-120)
--- NOTE | 2019-11-06 07:01 | NUR ---
ASSESSMENT DONE. DENIES NEEDS
[2019-11-06 08:57] VITALS: Ht 172.7 cm; Wt 77.3 kg
--- NOTE | 2019-11-06 09:20 | NUR ---
I have reviewed this patient and I concur with the Shift Assessment completed by the Licensed Practical Nurse today this shift.
[2019-11-06 09:57] LABS: CKMB 0.7 U/L (0.0-3.6); CREATINE KINASE 87 UL (21-232)
[2019-11-06 09:58] VITALS: BP 92/53
[2019-11-06 10:00] LABS: TROPONIN-I < 0.017 ng/mL (0.000-0.060)
[2019-11-06 13:43] LABS: APPEARANCE CLEAR (CLEAR); BILIRUBIN NEGATIVE (NEGATIVE); COLOR YELLOW (YELLOW); GLUCOSE NEGATIVE (NEGATIVE); KETONE NEGATIVE (NEGATIVE); NITRITE NEGATIVE (NEGATIVE); PROTEIN NEGATIVE (NEGATIVE)
[2019-11-06] MEDS ORDERED: ISOSORBIDE MONO30 M1 PO (13:50)
[2019-11-06 14:40] VITALS: BP 94/50
--- NOTE | 2019-11-06 18:11 | NUR ---
DC GIVEN TO PT
--- NOTE | 2019-11-06 18:27 | NUR ---
DC HOME PER PERSONAL CAR
--- NOTE | 2019-11-07 06:53 | MORECARE ---
CASE MANAGEMENT DISCHARGE SUMMARY PATIENT: JERARDO THOMPSON UNIT: [id number] ADM DATE: 11/05/19 AGE: 64 : 53 SEX: M ROOM/BED: D.2122 AUTHOR: JAMES VILLAVICENCIO PHYSICIAN: REFERRING PHYSICIAN: NIECY MOREL MD DATE OF SERVICE: 11/07/19 Discharge Plan Patient Name: JERARDO THOMPSON [facility] [facility] 1955 Planned Disposition: Home Anticipated Discharge Date: 11/06/19 Discharge Date: 11/06/2019 Expected LOS: 1 Initial Reviewer: [email or web address] Initial Review Date: 11/07/2019 Generated: 11/07/19 7:53 am Coverage Notice Reviewer: [email or web address] Ramonita Walden Notice Issued Date-Time: 11/05/2019 16:05 Notice Type: Medicare Outpatient Observation Notice Notice Delivered To: Patient 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 Original given to patient and one placed on nelda. Patient Name: JERARDO THOMPSON Page [phone] at 0653 All edits/amendments must be made on the electronic document DICTATION DATE: 11/07/19 0652 DEPUTY CITY CLERK: CASSY 11/07/19 0652 RPT#: [id number] DC DATE:11/06/19 STATUS: DIS IN [facility] [address] [place] [address] END OF REPORT
== END 2019-11-06 18:28 | disposition home or self-care (01) ==
LOC: D.ER 14:28 → D.M2 15:57 → OBSVTIME 16:43 → D.M2 11-06 18:28
PROVIDERS: Family Medicine; ADMIT Internal Medicine Nephrology; ATTEND Internal Medicine Nephrology
DX: R07.9 Chest pain, unspecified (principal); I25.10 Atherosclerotic heart disease of native coronary artery without angina pectoris; I10 Essential (primary) hypertension; E11.40 Type 2 diabetes mellitus with diabetic neuropathy, unspecified; F32.9 Major depressive disorder, single episode, unspecified; Z85.038 Personal history of other malignant neoplasm of large intestine; Z95.0 Presence of cardiac pacemaker; Z99.81 Dependence on supplemental oxygen; R10.9 Unspecified abdominal pain

== ENCOUNTER → 2020-07-26 | Emergency (ER) | payer OTHER, MEDICAID ==
[~2020-07-26] VITALS: Ht 172.7 cm; Wt 75.0 kg
[~2020-07-26] MED LIST changes: +ISOSORBIDE MONO30 M1 PO; +LIPITOR40 MG PO; +MIRALAX17 GM PO
[2020-07-26 11:14] VITALS: Ht 172.7 cm; Wt 75.0 kg
[2020-07-26 11:45] LABS: BASOPHILS 0 % (0-2); EOSINOPHILS 0.9 % (0-7); HEMOGLOBIN 10.7 g/dL (13.5-17.5); IMMATURE GRANULOCYTES 0.4 % (0-5); LYMPHOCYTES 17.8 % (15-50); MCH 27.3 pg (26.0-34.0); MCHC 31.5 g/dL (31.0-37.0); MCV 86.7 fL (80.0-100.0); MEAN PLATELET VOLUME 9.5 fL (7.4-10.4); MONOCYTES 7.7 % (2-11); NEUTROPHILS 73.2 % (40-80); PLATELET COUNT 220 10x3/uL (130-400); RBC 3.92 10x6/uL (4.20-6.10); RDW 15.7 % (11.5-14.5); WBC 8.5 10x3/uL (4.8-10.8)
[2020-07-26 11:50] LABS: CALC OSMOLALITY 280 mosm/kg (275-300); CALCIUM 8.7 mg/dL (8.5-10.1); CARBON DIOXIDE 24.7 mmol/L (21.0-32.0); CHLORIDE - SERUM 106 mmol/L (98-107); CREATININE - SERUM 1.1 mg/dL (0.6-1.3); GLUCOSE 108 mg/dL (74-106); POTASSIUM - SERUM 4.4 mmol/L (3.5-5.1); SODIUM 137 mmol/L (136-145); UREA NITROGEN 28 mg/dL (7-18); eGFR NON AFRICAN AMERICAN 71 mL/min (90-120)
[2020-07-26 11:59] LABS: ALBUMIN 3.3 g/dL (3.4-5.0); ALKALINE PHOSPHATASE 82 U/L (30-120); ALT (SGPT) 23 U/L (10-68); AMYLASE - SERUM 106 U/L (25-115); BILIRUBIN - TOTAL 0.31 mg/dL (0.2-1.3); LIPASE 304 U/L (73-393); PROTEIN - SERUM 6.6 g/dL (6.4-8.2)
[2020-07-26 12:03] LABS: TROPONIN-I < 0.017 ng/mL (0.000-0.060)
[2020-07-26 13:10] LABS: BILIRUBIN NEGATIVE (NEGATIVE); KETONE NEGATIVE (NEGATIVE); NITRITE NEGATIVE (NEGATIVE); UROBILINOGEN NORMAL mg/dL (< 2)
[2020-07-26 14:43] VITALS: BP 105/61
== END | disposition home or self-care (01) ==
LOC: D.ER 11:08
PROVIDERS: Family Medicine
DX: R10.9 Unspecified abdominal pain (principal); K59.00 Constipation, unspecified; E11.9 Type 2 diabetes mellitus without complications; Z95.0 Presence of cardiac pacemaker; Z95.5 Presence of coronary angioplasty implant and graft; I25.10 Atherosclerotic heart disease of native coronary artery without angina pectoris; J44.9 Chronic obstructive pulmonary disease, unspecified

== ENCOUNTER 2020-08-05 21:24 | Emergency (ER) | payer OTHER, MEDICAID ==
[~2020-08-05] VITALS: Ht 172.7 cm; Wt 75.9 kg
[2020-08-05 21:37] VITALS: Ht 172.7 cm; Wt 75.9 kg
[2020-08-05 22:11] LABS: BASOPHILS 0.1 % (0-2); EOSINOPHILS 1.4 % (0-7); HEMATOCRIT 35.2 % (42.0-54.0); HEMOGLOBIN 10.9 g/dL (13.5-17.5); IMMATURE GRANULOCYTES 0.2 % (0-5); LYMPHOCYTES 23.5 % (15-50); MCH 27.4 pg (26.0-34.0); MCV 88.4 fL (80.0-100.0); MEAN PLATELET VOLUME 9.7 fL (7.4-10.4); MONOCYTES 8.6 % (2-11); NEUTROPHILS 66.2 % (40-80); PLATELET COUNT 249 10x3/uL (130-400); RBC 3.98 10x6/uL (4.20-6.10); RDW 15.8 % (11.5-14.5); WBC 8.8 10x3/uL (4.8-10.8)
[2020-08-05 22:24] LABS: CALC OSMOLALITY 281 mosm/kg (275-300); CALCIUM 9.9 mg/dL (8.5-10.1); CARBON DIOXIDE 27.2 mmol/L (21.0-32.0); CHLORIDE - SERUM 106 mmol/L (98-107); CREATININE - SERUM 1.4 mg/dL (0.6-1.3); GLUCOSE 81 mg/dL (74-106); POTASSIUM - SERUM 3.9 mmol/L (3.5-5.1); SODIUM 139 mmol/L (136-145); UREA NITROGEN 26 mg/dL (7-18); eGFR NON AFRICAN AMERICAN 54 mL/min (90-120)
[2020-08-05 22:32] LABS: ALBUMIN 3.3 g/dL (3.4-5.0); ALKALINE PHOSPHATASE 75 U/L (30-120); ALT (SGPT) 24 U/L (10-68); AMYLASE - SERUM 113 U/L (25-115); BILIRUBIN - TOTAL 0.28 mg/dL (0.2-1.3); LIPASE 293 U/L (73-393)
[2020-08-05 22:36] LABS: TROPONIN-I < 0.017 ng/mL (0.000-0.060)
[2020-08-05 22:54] LABS: BILIRUBIN NEGATIVE (NEGATIVE); KETONE NEGATIVE (NEGATIVE); NITRITE NEGATIVE (NEGATIVE); UROBILINOGEN NORMAL mg/dL (< 2)
[2020-08-06] MEDS ORDERED: PROTONIX40 MG PO (01:25)
[2020-08-06] MEDS ORDERED: CARAFATE1 G/10 ML PO (01:25)
[2020-08-06 01:48] VITALS: BP 103/53
== END 2020-08-06 01:48 | disposition home or self-care (01) ==
LOC: D.ER 21:24
PROVIDERS: Family Medicine
DX: K29.70 Gastritis, unspecified, without bleeding (principal); E11.40 Type 2 diabetes mellitus with diabetic neuropathy, unspecified; Z86.73 Personal history of transient ischemic attack (TIA), and cerebral infarction without residual deficits; Z95.0 Presence of cardiac pacemaker; J44.9 Chronic obstructive pulmonary disease, unspecified; Z99.81 Dependence on supplemental oxygen

== ENCOUNTER 2021-02-04 21:20 | Emergency (ER) | payer OTHER, MEDICAID ==
[2020-08-05 21:37] VITALS: Ht 172.7 cm
[~2021-02-04 21:20] MED LIST changes: +CARAFATE1 G/10 ML PO
[2021-02-04 21:27] VITALS: BP 118/71
[2021-02-04] MEDS ORDERED: VISTARIL25 MG PO (21:36)
== END 2021-02-04 22:16 | disposition home or self-care (01) ==
LOC: D.ER 21:20
DX: L29.9 Pruritus, unspecified (principal); R21 Rash and other nonspecific skin eruption; E11.40 Type 2 diabetes mellitus with diabetic neuropathy, unspecified; J44.9 Chronic obstructive pulmonary disease, unspecified